=== PATIENT | female | born 1980 | race African-American/Black ===

== ENCOUNTER 2018-07-09 07:12 | Emergency (ER) | payer MEDICAID, OTHER ==
[2018-07-09] MEDS ORDERED: NORMAL SALINE 1000 ML 1,000 ML IV ONE (07:52)
[2018-07-09] MEDS ORDERED: LOPERAMIDE HCL 2 MG CAPSULE PO ONE (08:05)
[2018-07-09 08:09] LABS: ABSOLUTE LYMPHOCYTES (AUTO) 1.2 10^3/uL (0.5-4.7); ABSOLUTE MONOCYTES (AUTO) 0.4 10^3/uL (0.1-1.4); ABSOLUTE NEUT (AUTO) 4.7 10^3/uL (1.7-8.2); BASOPHILS % (AUTO) 0.5 % (0-2); EOSINOPHILS % (AUTO) 0.4 % (0-6); HEMATOCRIT 36.6 % (36.0-47.0); HEMOGLOBIN 12.3 g/dL (12.0-15.5); LYMPHOCYTES % (AUTO) 18.6 % (13-45); MEAN CORPUSCULAR HEMOGLOBIN 29.4 pg (27.0-33.4); MEAN CORPUSCULAR HGB CONC 33.6 g/dL (32.0-36.0); MEAN CORPUSCULAR VOLUME 88 fl (80-97); MONOCYTES % (AUTO) 5.7 % (3-13); PLATELET COUNT 257 10^3/uL (150-450); RED BLOOD COUNT 4.17 10^6/uL (3.72-5.28); SEGMENTED NEUTROPHILS % (AUTO) 74.8 % (42-78); TOTAL CELLS COUNTED % (AUTO) 100 %; WHITE BLOOD COUNT 6.3 10^3/uL (4.0-10.5)
--- NOTE | 2018-07-09 08:12 | ER Document Report ---
ED General - General Chief Complaint: Diarrhea Stated Complaint: DIARRHEA Time Seen by Provider: 07/09/18 07:44 TRAVEL OUTSIDE OF THE [place] IN LAST 30 DAYS: No - HPI Notes: Patient is a 38-year-old female with no significant past medical history who presents to the ED complaining of diarrhea and occ abd cramping (generalized) over the last 8 days that changes in consistency. Patient states that some of her stool will be semisolid and other times it is watery diarrhea. No excessive foul smell. Patient states that usually occurs after she eats. Patient states that she usually has 1-2 bowel movements per day. She has not noticed any bright red blood or black tarry stools. She is still able to eat and drink otherwise without any difficulties. Patient states that she does have some mild burning with urination. She has not had any vaginal discharge, odor, or bleeding. Patient states that she has had a tubal ligation performed in the past. She has no concern of STD or STI does not want testing. Patient states that she has been on minocycline on and off over the last 8-9 months as well for acne. Denies any headache, fever, neck pain, URI, sore throat, chest pain, palpitations, syncope, cough, shortness of breath, wheeze, dyspnea, nausea /vomiting, urinary retention, hematuria, back pain, loss of control of bowel or bladder, or rash. - Related Data Allergies/Adverse Reactions: No Known Allergies Allergy (Verified 07/09/18 07:17) Past Medical History - Social History Smoking Status: Current Every Day Smoker Frequency of alcohol use: Occasional Drug Abuse: Marijuana Family History: Reviewed & Not Pertinent Patient has suicidal ideation: No Patient has homicidal ideation: No Renal/ Medical History: Denies: Hx Peritoneal Dialysis Past Surgical History: Reports: Hx Cardiac Surgery - x2, Hx Section - Immunizations Immunizations up to date: Yes Hx Diphtheria, Pertussis, Tetanus Vaccination: Yes Review of Systems - Review of Systems -: Yes All other systems reviewed and negative Physical Exam - Vital signs Vitals: Temp Pulse Resp BP Pulse Ox 99 F 119 H 18 129/75 H 98 07/09/18 07:25 07/09/18 07:25 07/09/18 07:25 07/09/18 07:25 07/09/18 07:25 - Notes Notes: PHYSICAL EXAMINATION: GENERAL: Well-appearing, well-nourished and in no acute distress. A&Ox4. Answers questions appropriately. Vitals: HR 76 apical auscul. by myself. HEAD: Atraumatic, normocephalic. EYES: Pupils equal round and reactive to light, extraocular movements intact, sclera anicteric, conjunctiva are normal. ENT: Nares patent and without discharge. oropharynx clear without exudates. No tonsilar hypertrophy or erythema. Moist mucous membranes. NECK: Normal range of motion, supple without lymphadenopathy LUNGS: Breath sounds clear to auscultation bilaterally and equal. No wheezes rales or rhonchi. HEART: Regular rate and rhythm without murmurs, rubs, gallops. ABDOMEN: Soft, nontender, nondistended abdomen. No guarding, no rebound. No masses appreciated. Normal bowel sounds present. No CVA tenderness bilaterally. Musculoskeletal: FROM to passive/active. Strength 5+/5. Extremities: No cyanosis, clubbing, or edema b/l. Peripheral pulses 2+. Capillary refill less than 3 seconds. NEUROLOGICAL: Normal speech, normal gait. PSYCH: Normal mood, normal affect. SKIN: Warm, Dry, normal turgor, no rashes or lesions noted. Course - Re-evaluation Re-evalutation: 07/09/18 09:49 Patient is an afebrile, well hydrated with 38-year-old female who presents to the ED with diarrhea, unspecified. Vitals are acceptable without significant tachycardia, tachypnea, or hypoxia. PE is otherwise unremarkable. Patient has not had any episodes of loose stool or diarrhea throughout her stay. She has not had any worsening or debilitating symptoms. CBC, CMP, lipase, urinalysis was unremarkable for acute pathology. Patient was unable to provide us with a stool sample so we will send her home with outpatient lab orders. Patient is nontoxic-appearing and is able to tolerate p.o. without difficulty. Patient did receive fluids as well as Imodium. No further labs or imaging warranted at this time. Patient's abdomen is otherwise benign to palpation currently. Low suspicion/risk for acute appendicitis, bowel obstruction, acute cholecystitis, acute cholangitis, perforated diverticulitis, incarcerated hernia, pancreatitis , perforated ulcer, peritonitis, sepsis, pelvic inflammatory disease, ectopic , tubo-ovarian abscess, ovarian torsion, or other systemic emergent condition at this time. Patient is aware that her condition can change from initial presentation and she needs to monitor symptoms closely and seek medical attention if any acute changes. Rx for imodium. Conservative measures otherwise for symptoms. Recheck with your PCM in 3-5 days. Consider consult with a para educator. Return to the ED with any worsening/concerning symptoms otherwise as reviewed in discharge. Patient is in agreement. - Vital Signs Vital signs: Temp Pulse Resp BP Pulse Ox 99 F 76 18 129/75 H 98 07/09/18 07:25 07/09/18 08:05 07/09/18 07:25 07/09/18 07:25 07/09/18 07:25 - Laboratory Result Diagrams: 07/09/18 07:56 07/09/18 07:56 Laboratory results interpreted by me: 07/09/18 07/09/18 07:56 07:56 Glucose 116 H Urine Ketones 20 H Discharge - Discharge Clinical Impression: Diarrhea, unspecified Qualifiers: Diarrhea type: unspecified type Qualified Code(s): R19.7 - Diarrhea, unspecified Condition: Stable Disposition: HOME, SELF-CARE Instructions: Diarrhea, Nonspecific ([facility]) Additional Instructions: Maintain adequate fluid and food intake [place] diet ([employer] Bananas, rice, apples, toast, etc imodium as needed tylenol if needed Monitor for any worsening symptoms Make sure you are staying hydrated enough to urinate and have normal BM's Recheck with your PCM in 3-5 days Consider consult with Gastroenterology for ongoing/worsening symptoms Return to the ED with any worsening symptoms and/or development of fever, headache, chest pain, palpitations, syncope, shortness of breath, trouble breathing, abdominal pain, n/v/d, blood in stool/urine, weakness, or other worsening symptoms that are concerning to you. Prescriptions: Loperamide HCl [Imodium 2 mg Capsule] 2 mg PO PRN PRN #21 cap PRN Reason: Forms: Elevated Blood Pressure, Smoking Cessation Education, Follow-Up Laboratory Testing Referrals: ZANA AUGUSTINE MD [NO LOCAL MD] - Follow up as needed TEE LAZARO MD [ACTIVE STAFF] - Follow up as needed
[2018-07-09 08:28] LABS: ALANINE AMINOTRANSFERASE 19 U/L (9-52); ALBUMIN 4.2 g/dL (3.5-5.0); ALKALINE PHOSPHATASE 55 U/L (38-126); ANION GAP 10 (5-19); ASPARTATE AMINO TRANSFERASE 22 U/L (14-36); BILIRUBIN,DIRECT 0.3 mg/dL (0.0-0.4); BILIRUBIN,TOTAL 0.6 mg/dL (0.2-1.3); BLOOD UREA NITROGEN 12 mg/dL (7-20); CALCIUM 9.3 mg/dL (8.4-10.2); CARBON DIOXIDE 27 mmol/L (22-30); CHLORIDE 105 mmol/L (98-107); GLUCOSE 116 mg/dL (75-110); POTASSIUM 3.8 mmol/L (3.6-5.0); SODIUM 141.8 mmol/L (137-145); TOTAL PROTEIN 6.8 g/dL (6.3-8.2)
[2018-07-09 09:14] LABS: APPEARANCE,URINE SLIGHTLY-CLOUDY; BILIRUBIN,URINE NEGATIVE (NEGATIVE); COLOR,URINE YELLOW; GLUCOSE, URINE NEGATIVE (NEGATIVE); KETONES,URINE 20 mg/dL (NEGATIVE); LEUKOCYTE ESTERASE,URINE NEGATIVE (NEGATIVE); NITRITE,URINE NEGATIVE (NEGATIVE); PROTEIN,URINE NEGATIVE (NEGATIVE); URINE SPECIFIC GRAVITY 1.015; UROBILINOGEN,URINE NEGATIVE mg/dL (<2.0)
[2018-07-09 10:07] VITALS: BP 96/59
== END 2018-07-09 10:11 | disposition home or self-care (01) ==
LOC: ER 07:12
DX: R19.7 Diarrhea, unspecified (principal); R10.84 Generalized abdominal pain; R30.0 Dysuria; F17.200 Nicotine dependence, unspecified, uncomplicated
CPT/HCPCS: 99284; 96360; 96361; 36415; 83690; 85025; 81025; 80053; 81001; J7030